=== PATIENT | male | born 1985 | race Caucasian/White ===

== ENCOUNTER 2017-01-11 17:45 | Emergency (ER) | payer OTHER ==
[2017-01-11 18:00] VITALS: O2SAT 97
[2017-01-11] MEDS ORDERED: Hydromorphone 1 mg/ml Ampule IM STA ×2 (18:13→18:29)
[2017-01-11] MEDS ORDERED: Phenergan 25 MG INJ IM ONE (18:17)
--- NOTE | 2017-01-11 18:19 | ERPHSYRPT ---
- History of Present Illness Time Seen by Provider: 01/11/17 17:50 Source: patient Exam Limitations: clinical condition Patient Subjective Stated Complaint: pt states he has chronic back pain. Worse over the past few days. pt c/o pain radiating to right knee. Triage Nursing Assessment: pt pink, warm, dry. pt able to transfer to ER cot without difficulty and bend over to take pants off. no deformities noted. Physician History: PATIENT WITH HISTORY OF CHRONIC LOW BACK PAIN FOR 6 MONTHS, NOW HAS NUMBNESS RADIATING DOWN BOTH LEGS. DENIES, HISTORY OF INJURY OR TRAUMA. DENIES LOSS OF BOWEL OR BLADDER DYSFUNCTION. Timing/Duration: day(s) Method of Injury: unknown Quality: burning Back Pain Location: lumbar spine Back Pain Radiation: lower legs Severity of Pain-Max: moderate Severity of Pain-Current: moderate Associated Symptoms: muscle spasms Previous symptoms: same symptoms as today Allergies/Adverse Reactions: No Known Drug Allergies Allergy (Unverified 01/11/17 17:59) Hx Tetanus, Diphtheria Vaccination/Date Given: Yes (up to date) Hx Influenza Vaccination/Date Given: No Hx Pneumococcal Vaccination/Date Given: No Immunizations Up to Date: Yes - Review of Systems Constitutional: No Fever, No Chills Eyes: No Symptoms Ears, Nose, & Throat: No Symptoms Respiratory: No Cough, No Dyspnea Cardiac: No Symptoms, No Chest Pain, No Edema, No Syncope Abdominal/Gastrointestinal: No Symptoms, No Abdominal Pain, No Nausea, No Vomiting, No Diarrhea Genitourinary Symptoms: No Dysuria Musculoskeletal: No Back Pain, No Neck Pain Skin: No Rash Neurological: No Dizziness, No Focal Weakness, No Sensory Changes Psychological: No Symptoms Endocrine: No Symptoms All Other Systems: Reviewed and Negative - Past Medical History Pertinent Past Medical History: Yes Other Medical History: chronic back pain - Past Surgical History Past Surgical History: Yes Musculoskeletal: Orthopedic Surgery - Social History Smoking Status: Never smoker Exposure to second hand smoke: No Drug Use: none Patient Lives Alone: No - Nursing Vital Signs Nursing Vital Signs: Initial Vital Signs Temperature 99.1 F Temperature Source Oral Pulse Rate 87 Respiratory Rate 18 Blood Pressure [Right Arm] 140/87 Pain Intensity [Right Lower 8 Back] Pain Intensity 8 - Physical Exam General Appearance: no apparent distress, alert Eye Exam: PERRL/EOMI, eyes nml inspection Neck Exam: normal inspection, non-tender, supple, full range of motion, No meningismus, No midline tenderness Respiratory Exam: normal breath sounds, lungs clear, No respiratory distress Cardiovascular Exam: regular rate/rhythm, normal heart sounds Gastrointestinal Exam: soft, No tenderness, No mass Back Exam: vertebral tenderness, decreased range of motion, muscle spasm ( SPINAL AND PARASPINAL TENDERNESS L-2 TO L-5) Extremity Exam: normal inspection, normal range of motion, No calf tenderness, No pedal edema Peripheral Pulses: carotid (R): 2+, carotid (L): 2+, femoral (R): 2+, femoral (L ): 2+, dorsalis-pedis (R): 2+, dorsalis-pedis (L): 2+ Neurologic Exam: alert, oriented x 3, cooperative, evening or night nurse supervisor II-XII nml as tested, normal mood/affect, nml station & gait, sensation nml, No motor deficits Skin Exam: normal color, warm, dry, No rash SpO2: 97 Oxygen Delivery: Room Air - CT Exams Lumbar Spine CT Interpretation: Tele-radiologist Report (THERE IS BILATERAL L5 SPONDYLOLYSES WITH SLIGHT ANTERIOR SPONDLOLITHESIS. MODERATE BILATERAL NEURAL FORAMINAL STENOSIS WITH POSSIBLE IMPINGEMENT OF THE EXITING L-5 NERVE ROOT) Ordered Tests: Active Orders 24 hr Category Date Time Status LUMBAR SPINE W/O [CT] Stat Exams 01/11/17 18:16 Taken Medication Summary Discontinued Medications Generic Name Dose Route Start Last Admin Trade Name Elisa PRN Reason Stop Dose Admin Hydromorphone HCl 2 mg 01/11/17 18:13 01/11/17 18:30 Hydromorphone 1 Mg/Ml Ampule IM 01/11/17 18:14 Not Given STAT STA Hydromorphone HCl Confirm 01/11/17 18:25 Hydromorphone 1 Mg/Ml Ampule Administered 01/11/17 18:26 Dose 2 mg .ROUTE .STK-MED ONE Hydromorphone HCl 1 mg 01/11/17 18:29 01/11/17 18:53 Hydromorphone 1 Mg/Ml Ampule IM 01/11/17 18:30 1 mg STAT STA Administration Promethazine HCl 25 mg 01/11/17 18:17 01/11/17 18:53 Phenergan 25 Mg Inj IM 01/11/17 18:18 25 mg STAT ONE Administration Promethazine HCl Confirm 01/11/17 18:25 Phenergan 25 Mg Inj Administered 01/11/17 18:26 Dose 25 mg .ROUTE .STK-MED ONE - Progress Progress: improved, pain not gone completely Progress Note: 01/11/17 19:11 PATIENT GIVEN DILAUDID 1MG/PHENERGAN 25MG IM Counseled pt/family regarding: diagnosis, need for follow-up, rad results - Departure Time of Disposition: 19:20 Departure Disposition: Home Clinical Impression: CHRONIC LOW BACK PAIN Condition: Stable Critical Care Time: No Instructions: Back Pain With Sciatica Additional Instructions: FOLLOWUP WITH YOUR PRIMARY CARE PROVIDER FOR EVALUATION AND REFERRAL TO SPINAL SURGEON. TORADOL 10MG EVERY 6 HOURS FOR PAIN. NORFLEX 100MG TWICE DAILY FOR MUSCLE SPASM. Prescriptions: Ketorolac Tromethamine [Toradol] 10 mg PO Q6H PRN PRN #20 tablet PRN Reason: Pain Orphenadrine Citrate 100 mg [Norflex 100 MG Tablet] 100 mg PO BID #10 tab
[2017-01-11] MEDS ORDERED: Phenergan 25 MG INJ ONE (18:25)
[2017-01-11] MEDS ORDERED: Hydromorphone 1 mg/ml Ampule ONE (18:25)
[2017-01-11 19:01] VITALS: BP 115/69; PULSE 78
--- NOTE | 2017-01-12 08:55 | XRAY ---
Indication: Low back pain with left leg numbness. Multiple contiguous axial images obtained through the lumbar spine without contrast. Sagittal and coronal reformatted images obtained. Comparison: None Axial images negative for acute fracture, suspicious bony lesions, or spinal canal stenosis. Minimal broad-based disc bulge seen at the L4-S1 levels without significant spinal canal compromise. Bilateral L5 spondylolysis with minimal 2 mm spondylolisthesis and subsequent bilateral foraminal stenosis. Sagittal and coronal reformatted images demonstrates normal alignment with disc spaces preserved. No compression fracture. Remaining visualized noncontrasted soft tissues unremarkable. Impression: Minimal L4-S1 degenerative disc disease. Bilateral L5 spondylolysis with minimal grade 1 spondylolisthesis. Outpatient MRI may yield further information if clinically warranted. Comment: Preliminary interpretation was made by [facility]. No discrepancy. CTDI 66.86
== END 2017-01-11 19:34 | disposition home or self-care (01) ==
LOC: ED 17:45
DX: M54.5 Low back pain (principal); G89.29 Other chronic pain; M79.662 Pain in left lower leg; M79.661 Pain in right lower leg
CPT/HCPCS: 72131; 96372; 99284; J1170; J2550

== ENCOUNTER 2019-03-05 14:32 | Emergency (ER) | payer OTHER, SELFPAY ==
[2019-03-05 14:49] VITALS: BP 158/97; PULSE 98; O2SAT 98
--- NOTE | 2019-03-05 14:55 | ERPHSYRPT ---
- History of Present Illness Time Seen by Provider: 03/05/19 14:44 Source: patient Exam Limitations: no limitations Patient Subjective Stated Complaint: pt reports striking a tree last evening with his left hand, states this morning his hand is swollen and is having increased pain with movement. Triage Nursing Assessment: pt is aox3, pupils perrl, afebrile, resps easy and non labored, radial pulses strong and equal, cap refill < 3 seconds, pt skin pink warm dry. abrasions noted to the left knuckles, hand is swollen, skin is intact. Physician History: Pt apparently punched a tree last night, because he was angry, suffered abrasions and contusion on his left hand, and small abrasion on the right middle finger, he denies other injury, or complaints. His has received tetanus 6 - years ago. Occurred: yesterday Method of Injury: direct blow Quality: constant Severity of Pain-Max: moderate Severity of Pain-Current: moderate Extremities Pain Location: hand: left (4-5 th MP area), 3rd finger: right (base , mid phalanx) Modifying Factors: Improves With: immobilization, movement Associated Symptoms: none Allergies/Adverse Reactions: No Known Drug Allergies Allergy (Unverified 01/11/17 17:59) Home Medications: No Reportable Medications [No Reported Medications] 03/05/19 [History] Hx Tetanus, Diphtheria Vaccination/Date Given: Yes Hx Influenza Vaccination/Date Given: No Hx Pneumococcal Vaccination/Date Given: No Immunizations Up to Date: Yes - Review of Systems Constitutional: No Symptoms Ears, Nose, & Throat: No Symptoms Respiratory: No Symptoms Cardiac: No Symptoms Abdominal/Gastrointestinal: No Symptoms Musculoskeletal: Other (painful left 4-5 th MP joints, ) Skin: Other (abrasions both dorsal hands, ) Neurological: No Symptoms All Other Systems: Reviewed and Negative - Past Medical History Pertinent Past Medical History: Yes Other Medical History: chronic back pain - Past Surgical History Past Surgical History: Yes Musculoskeletal: Orthopedic Surgery Male Surgical History: Other Other Surgical History: testicular torsion - Social History Smoking Status: Current every day smoker Exposure to second hand smoke: No Drug Use: none Patient Lives Alone: No - Nursing Vital Signs Nursing Vital Signs: Initial Vital Signs Temperature 98.6 F 03/05/19 14:40 Pulse Rate 98 H 03/05/19 14:40 Respiratory Rate 18 03/05/19 14:40 Blood Pressure 158/97 03/05/19 14:40 O2 Sat by Pulse Oximetry 98 03/05/19 14:40 Pain Scale Pain Intensity 7 - Physical Exam General Appearance: no apparent distress Eyes, Ears, Nose, Throat Exam: normal ENT inspection Neck Exam: normal inspection, non-tender Cardiovascular/Respiratory Exam: chest non-tender, normal breath sounds, heart sounds normal Abdominal Exam: non-tender, soft Back Exam: normal inspection, No vertebral tenderness Wrist Exam: normal inspection, non-tender, no evidence of injury Hand Exam: abrasions, ecchymosis, soft tissue tenderness (left dorsal 4-5th MP area with swelling, tenderness, no deformity, good capillar refills, superficial abrasions on dorsal left hand and right middle finger, dorsal base and mid phalanx with mild tenderness, normal ROM, and capillary refills, normal sensation.) Neuro/Tendon Exam: normal sensation, normal motor functions Mental Status Exam: alert, oriented x 3, cooperative Skin Exam: normal color, warm, dry, abrasion SpO2 Interpretation: normal SpO2: 98 O2 Delivery: Room Air - Course Nursing assessment & vital signs reviewed: Yes - Radiology Exams Left Hand X-ray Interpretation: Interpreted by me, Negative Right Hand X-ray Interpretation: Interpreted by me, Negative Ordered Tests: Active Orders 24 hr Category Date Time Status HAND (MINIMUM 3 VIEWS) Stat Exams 03/05/19 14:50 Taken HAND (MINIMUM 3 VIEWS) Stat Exams 03/05/19 14:51 Taken - Progress Progress: unchanged Progress Note: 03/05/19 15:16 Pt was given PO Motrin, reviewed his X rays, and discharged to rest x 2-3 days with elevated hands, and apply ice or cold compresses to swelling, and follow up with his physician this week. Counseled pt/family regarding: diagnosis, need for follow-up, rad results - Departure Departure Disposition: Home Clinical Impression: Contusion of hand including fingers Qualifiers: Encounter type: initial encounter Laterality: unspecified laterality Qualified Code(s): S60.229A - Contusion of unspecified hand, initial encounter; S60.00XA - Contusion of unspecified finger without damage to nail, initial encounter Condition: Stable Critical Care Time: No Referrals: LINCOLN ZEE [Primary Care Provider] - Instructions: Hand Pain (DC), Skin Abrasions (DC) Additional Instructions: Rest x 2-3 days with elevated hands, and apply ice or cold compresses to swelling, follow up with your physician in 1 week, return if severe pain, swelling or sudden discoloration, coldness of the fingers!
[2019-03-05] MEDS ORDERED: MOTRIN 400 MG PO ONE (15:15)
[2019-03-05] MEDS ORDERED: MOTRIN 400 MG ONE (15:24)
--- NOTE | 2019-03-05 20:36 | XRAY ---
Indication: Pain following punching injury. Comparison: None 3 views of the left hand demonstrates posterior soft tissue swelling. No other bony, articular, or soft tissue abnormalities.
--- NOTE | 2019-03-05 20:39 | XRAY ---
Indication: Pain following punching injury. Comparison: None 3 views of the right hand demonstrates posterior soft tissue swelling and tiny 1st MCP heterotopic ossification. No other bony, articular, or soft tissue abnormalities.
== END 2019-03-05 15:30 | disposition home or self-care (01) ==
LOC: ED 14:32
DX: S60.229A Contusion of unspecified hand, initial encounter (principal); S60.00XA Contusion of unspecified finger without damage to nail, initial encounter; W22.09XA Striking against other stationary object, initial encounter
CPT/HCPCS: 73130; 99283; A9270-GY

== ENCOUNTER 2020-04-08 18:06 | Emergency (ER) | payer OTHER ==
[2020-04-08 18:18] VITALS: O2SAT 99
[2020-04-08] MEDS ORDERED: TORAdol 30 mg Injection IM ONE (19:17)
[2020-04-08] MEDS ORDERED: Norflex 60 MG/2 ML IM ONE (19:18)
--- NOTE | 2020-04-08 19:18 | ERPHSYRPT ---
- History of Present Illness Source: patient Exam Limitations: no limitations Patient Subjective Stated Complaint: pt states a couple days ago he slipped and fell on right side and now, he has numbness to right leg and foot,he aslo co pain to back which he states is worse than normal Triage Nursing Assessment: pt alert, resp easy, face mask in place, moves all ext well, able to undress self Physician History: 35 yo wm w lumbar pain after falling 2 dayts ago while camping. Pt states pain 8/10 and worse w movement. Pain radiates down LLE. He denies numbness/incontinence/fever/dysuria/hematuria. Pt had lumbar surgery in [place] per Dr. Blanco in 09/14. Timing/Duration: other (2 days) Method of Injury: fall Quality: dull, aching Back Pain Location: lumbar spine Back Pain Radiation: upper legs (LLE-thigh) Modifying Factors: Improves With: movement Associated Symptoms: lower back pain, No fever, No chills, No sweating, No urinary incontinence, No loss of bowel control, No constipation, No nausea, No vomiting, No problems urinating, No light-headedness, No dizziness, No numbness in legs/feet, No weakness, No sensory/motor loss, No tingling in legs/feet, No muscle spasms Previous symptoms: other (h/o chronic lumbar pain) Allergies/Adverse Reactions: No Known Drug Allergies Allergy (Unverified 01/11/17 17:59) Hx Tetanus, Diphtheria Vaccination/Date Given: Yes Hx Influenza Vaccination/Date Given: No Hx Pneumococcal Vaccination/Date Given: No Immunizations Up to Date: Yes Travel Risk - International Travel Have you traveled outside of the country in past 3 weeks: No - Coronavirus Screening Close contact with a COVID-19 positive Pt in past 14-21 Days: No - Review of Systems Constitutional: No Symptoms Eyes: No Symptoms Ears, Nose, & Throat: No Symptoms Respiratory: No Symptoms Cardiac: No Symptoms Abdominal/Gastrointestinal: No Symptoms Genitourinary Symptoms: No Symptoms Skin: No Symptoms Neurological: No Symptoms Psychological: No Symptoms Endocrine: No Symptoms Hematologic/Lymphatic: No Symptoms Immunological/Allergic: No Symptoms - Past Medical History Pertinent Past Medical History: Yes Neurological History: No Pertinent History ENT History: No Pertinent History Cardiac History: No Pertinent History Respiratory History: No Pertinent History Endocrine Medical History: No Pertinent History Musculoskeletal History: Degenerative Disk Disease GI Medical History: No Pertinent History History: No Pertinent History Psycho-Social History: No Pertinent History Male Reproductive Disorders: No Pertinent History Other Medical History: chronic back pain - Past Surgical History Past Surgical History: Yes Musculoskeletal: Orthopedic Surgery Male Surgical History: Other Other Surgical History: testicular torsion, back surgery, hand surgery - Social History Smoking Status: Current every day smoker Exposure to second hand smoke: Yes Drug Use: none Patient Lives Alone: No Significant Family History: no pertinent family hx - Nursing Vital Signs Nursing Vital Signs: Initial Vital Signs Temperature 97.9 F 04/08/20 18:13 Pulse Rate 97 H 04/08/20 18:13 Respiratory Rate 18 04/08/20 18:13 Blood Pressure 181/97 04/08/20 18:13 O2 Sat by Pulse Oximetry 99 04/08/20 18:13 Pain Scale Pain Intensity [] 10 Pain Intensity [] 8 Pain Intensity 10 - Physical Exam General Appearance: no apparent distress, other (Mild pain) Eye Exam: PERRL/EOMI, eyes nml inspection Ears, Nose, Throat Exam: normal ENT inspection, TMs normal, pharynx normal, moist mucous membranes Neck Exam: normal inspection, non-tender, supple, full range of motion, No meningismus, No Brudzinski, No Kernig's Respiratory Exam: normal breath sounds, lungs clear, airway intact, No respiratory distress Cardiovascular Exam: regular rate/rhythm, normal heart sounds, normal peripheral pulses, murmur Gastrointestinal Exam: soft, normal bowel sounds, No tenderness, No distention, No ecchymosis, No pulsatile mass Back Exam: vertebral tenderness (Mid-inferior lumbar ttp) Extremity Exam: normal inspection, normal range of motion, pelvis stable, No deformities, No parasthesia, No paralysis, No yisel's sign Peripheral Pulses: dorsalis-pedis (R): 2+, dorsalis-pedis (L): 2+ Neurologic Exam: alert, oriented x 3, cooperative, resist coater developer II-XII nml as tested, normal mood/affect, nml cerebellar function, nml station & gait, sensation nml, No motor deficits, No sensory deficit Skin Exam: normal color, warm, dry Lymphatic Exam: No adenopathy SpO2 Interpretation: normal SpO2: 99 O2 Delivery: Room Air - Course Nursing assessment & vital signs reviewed: Yes - CT Exams Lumbar Spine CT Interpretation: Discussed w/radiologist (No acute findings) Ordered Tests: Active Orders 24 hr Category Date Time Status LUMBAR SPINE W/O [CT] Stat Exams 04/08/20 18:24 Taken Medication Summary Discontinued Medications Generic Name Dose Route Start Last Admin Trade Name Freq PRN Reason Stop Dose Admin Ketorolac Tromethamine 60 mg 04/08/20 19:17 04/08/20 19:41 Toradol 30 Mg Injection IM 04/08/20 19:18 60 mg STAT ONE Administration Ketorolac Tromethamine Confirm 04/08/20 19:30 Toradol 30 Mg Injection Administered 04/08/20 19:31 Dose 30 mg .ROUTE .STK-MED ONE Ketorolac Tromethamine Confirm 04/08/20 19:35 Toradol 30 Mg Injection Administered 04/08/20 19:36 Dose 30 mg .ROUTE .STK-MED ONE Orphenadrine Citrate 60 mg 04/08/20 19:18 04/08/20 19:41 Norflex 60 Mg/2 Ml IM 04/08/20 19:19 60 mg STAT ONE Administration Orphenadrine Citrate Confirm 04/08/20 19:30 Norflex 60 Mg/2 Ml Administered 04/08/20 19:31 Dose 60 mg .ROUTE .STK-MED ONE - Progress Progress: improved Progress Note: 04/08/20 19:19 60mg IM toradol/60mg IM Norflex Counseled pt/family regarding: need for follow-up, rad results - Departure Departure Disposition: Home Clinical Impression: Lumbar contusion Condition: Stable Critical Care Time: No Referrals: ALEXIA VELEZ MD [Primary Care Provider] - Instructions: Low Back Pain (DC) Additional Instructions: Toradol/Norflex as needed Follow up with Dr. Blanco in 1-2 days Return to ER as needed Prescriptions: Orphenadrine Citrate 100 mg [Norflex 100 MG Tablet] 100 mg PO BID PRN #10 tab PRN Reason: Pain Ketorolac Tromethamine [Toradol] 10 mg PO TID PRN #10 tablet PRN Reason: Pain
[2020-04-08] MEDS ORDERED: Norflex 60 MG/2 ML ONE (19:30)
[2020-04-08] MEDS ORDERED: TORAdol 30 mg Injection ONE ×2 (19:30→19:35)
[2020-04-08 20:13] VITALS: BP 117/76; PULSE 69
--- NOTE | 2020-04-10 06:47 | XRAY ---
Exam: CT of the lumbar spine without IV contrast from 04/08/2020. Comparison: CT of the lumbar spine without IV contrast from 01/11/2017. Indication: Patient fell, complains of back pain. Technique: Non-IV contrast axial images were obtained through the lumbar spine. In addition, angled axial images were obtained through all 5 lumbar interspaces, parallel to each respective lumbar interspace. Reconstructed coronal and sagittal images were created and reviewed. Findings: The patient has a prior history of bilateral L5 spondylolysis with only very slight anterior subluxation of L5 over S1. The patient has undergone interval L5 laminectomy with posterior L5-S1 surgical fusion with short paired transpedicular rods and 4 adjoining pedicle screws. There is also a spacer device at L5-S1. The surgery is new from 01/11/2017. The orthopedic hardware causes mild metallic artifact. I see no acute lumbar spine fracture or new AP subluxation. I believe there is slight retrolisthesis of L3 with respect to L4 and L4 with respect to L5. This is unchanged from 01/11/2017 in retrospect. Moderate anterior vertebral endplate spurs are seen at T12-L1 and L1L2 representing no change. The lumbar interspace heights are well-maintained. I see no definite disc protrusion. Assessment at the L5-S1 interspace level is limited due to CT artifact. No severe spinal canal stenosis is seen. No significant narrowing of the neural foramen is seen bilaterally. Impression: 1. The patient has undergone interval L5 laminectomy with posterior surgical fusion at L5-S1 with metallic orthopedic hardware, as described above. This causes some CT metallic artifact and limits assessment of the intraspinal contents at L5-S1. 2. An L5-S1 disc spacer is seen. 3. No acute lumbar spine fracture or new AP subluxation is seen. There appears to be slight retrolisthesis of L3 with respect to L4 and L4 with respect to L5 on the sagittal images, but I believe this is unchanged from the sagittal images dated 01/11/2017 (i.e. chronic). No other acute abnormality is detected.
== END 2020-04-08 19:57 | disposition home or self-care (01) ==
LOC: ED 18:06
DX: S30.0XXA Contusion of lower back and pelvis, initial encounter (principal); W01.0XXA Fall on same level from slipping, tripping and stumbling without subsequent striking against object, initial encounter; Y93.9 Activity, unspecified; Y92.9 Unspecified place or not applicable; M54.5 Low back pain; G89.29 Other chronic pain; F45.42 Pain disorder with related psychological factors
CPT/HCPCS: 72131; 96372; 99284; J1885; J2360